=== PATIENT | male | born 1975 | race Two or more races ===

== ENCOUNTER 2017-11-24 09:14 | Outpatient (CLI) | payer OTHER ==
[~2017-11-24 09:14] MED LIST: AMOX1TAB12 PO; KETO10TA2 PO; TRIPLE ANTIBIOT15 GM TP; ZOCOR20 MG
== END 2017-11-24 14:52 | disposition home or self-care (01) ==
LOC: MRI 09:14
DX: M51.24 Other intervertebral disc displacement, thoracic region (principal)
CPT/HCPCS: 72146

== ENCOUNTER 2018-02-14 12:54 | Emergency (ER) | payer OTHER ==
[~2018-02-14] VITALS: Ht 177.8 cm; Wt 77.1 kg
== END 2018-02-14 15:48 | disposition home or self-care (01) ==
LOC: ER 12:54
DX: K29.70 Gastritis, unspecified, without bleeding (principal)

== ENCOUNTER 2018-06-11 07:06 | Outpatient (CLI) | payer OTHER | END 2018-06-11 17:00 | disposition home or self-care (01) | LOC: SONOGRAMA 07:06 | DX: R10.84 Generalized abdominal pain (principal) ==

== ENCOUNTER 2020-06-12 10:24 | Outpatient (CLI) | payer OTHER | END 2020-06-12 10:30 | disposition home or self-care (01) | LOC: LAB 10:24 | PROVIDERS: ATTEND Radiology Diagnostic Radiology | DX: N20.0 Calculus of kidney (principal) ==

== ENCOUNTER → 2020-06-13 | Outpatient (CLI) | payer OTHER | END | disposition home or self-care (01) | LOC: TOM 06:34 | PROVIDERS: ATTEND Internal Medicine Gastroenterology | DX: R10.84 Generalized abdominal pain (principal); M43.19 Spondylolisthesis, multiple sites in spine; R10.32 Left lower quadrant pain ==

== ENCOUNTER → 2020-10-08 08:30 | Outpatient (CLI) | payer OTHER | END | disposition home or self-care (01) | LOC: LAB 08:30 | PROVIDERS: ATTEND Radiology Diagnostic Radiology | DX: R10.9 Unspecified abdominal pain (principal) ==

== ENCOUNTER 2020-10-08 09:42 | Outpatient (CLI) | payer OTHER | END 2020-10-08 10:05 | disposition home or self-care (01) | LOC: TOM 09:42 | PROVIDERS: ATTEND Internal Medicine Cardiovascular Disease | DX: R10.9 Unspecified abdominal pain (principal) ==

== ENCOUNTER → 2020-12-24 09:58 | Outpatient (CLI) | payer OTHER ==
[~2020-12-24 09:58] MED LIST changes: +MIRALAX17 GM PO; +NEURONTIN300 MG PO; +OMEPRAZOLE MAGN20 MG PO; +TOPROL XL25 M1 PO; +TYLENOL ARTHRI650 MG PO; +ULTRAM50 MG PO
== END | disposition home or self-care (01) ==
LOC: LAB 09:58
PROVIDERS: ATTEND Surgery
DX: Z03.818 Encounter for observation for suspected exposure to other biological agents ruled out (principal); R10.84 Generalized abdominal pain; I10 Essential (primary) hypertension

== ENCOUNTER 2020-12-26 08:43 | Day surgery (SDC) | payer OTHER ==
[~2020-12-26 08:43] MED LIST changes: -MIRALAX17 GM PO; -NEURONTIN300 MG PO; -TYLENOL ARTHRI650 MG PO; -ULTRAM50 MG PO
[2020-12-26] MEDS ORDERED: TYLENOL ARTHRI650 MG PO (13:00)
[2020-12-26] MEDS ORDERED: NEURONTIN300 MG PO (13:00)
[2020-12-26] MEDS ORDERED: ULTRAM50 MG PO (13:00)
[2020-12-26] MEDS ORDERED: MIRALAX17 GM PO (13:00)
== END 2020-12-26 16:45 | disposition home or self-care (01) ==
LOC: CIR.AMB 08:43
PROVIDERS: ATTEND Surgery
DX: K40.90 Unilateral inguinal hernia, without obstruction or gangrene, not specified as recurrent (principal); Z20.822 Contact with and (suspected) exposure to COVID-19

== ENCOUNTER 2022-02-03 12:31 | Outpatient (CLI) | payer OTHER ==
[~2022-02-03 12:31] MED LIST changes: +MIRALAX17 GM PO; +NEURONTIN300 MG PO; +TYLENOL ARTHRI650 MG PO; +ULTRAM50 MG PO
== END 2022-02-03 12:41 | disposition home or self-care (01) ==
LOC: PPH VACUNA 12:31
PROVIDERS: ATTEND Emergency Medicine Pediatric Emergency Medicine
DX: Z23 Encounter for immunization (principal)